=== PATIENT | female | born 1995 | race Hispanic/Latino ===

== ENCOUNTER 2017-10-30 17:04 | Emergency (ER) | payer OTHER ==
[2017-10-30] MEDS ORDERED: Lidocaine 1% w/Epinephrine 1:100K 30 ML VIAL ONE (17:18)
[2017-10-30] MEDS ORDERED: Bacitracin Zinc 1 Packet ONE (17:55)
[2017-10-30] MEDS ORDERED: Adacel (T-DAP) 0.5 ML VIAL ONE (18:05)
== END 2017-10-30 18:13 | disposition home or self-care (01) ==
LOC: NAV ERS 17:04
DX: S81.012A Laceration without foreign body, left knee, initial encounter (principal); W22.03XA Walked into furniture, initial encounter
CPT/HCPCS: 12002; 90471; 90715; J2001